=== PATIENT | male | born 1955 | race Caucasian/White ===

== ENCOUNTER 2019-04-06 13:04 | Emergency (ER) | payer OTHER ==
[2019-04-06 13:38] VITALS: BP 146/83; PULSE 85; RESP 18; TEMP 98
[2019-04-06] MEDS ORDERED: KETOROLAC 30 MG/ML 1 ML VIAL IM STA (14:18)
[2019-04-06] MEDS ORDERED: ACET/COD 300 MG/30 MG STARTER PACK 6 TAB BTL PO STA (14:21)
--- NOTE | 2019-04-06 14:23 | ED ---
General Adult HPI - General Chief complaint: Fall Stated complaint: fall, rib pain Time Seen by Provider: 04/06/19 14:03 Source: patient, RN notes reviewed Mode of arrival: ambulatory Limitations: no limitations - History of Present Illness Initial comments: 63-year-old male with a past medical history of hyperlipidemia, hypertension presents to the emergency department for a chief complaint of fall. Patient states that 3 days ago he was walking when he tripped over a wire and fell. States he fell into a the left anterior chest wall. States that the room is fine however he has left sided rib pain in his chest area. States he has not had any abdominal pain. Denies any midline back pain. Denies any other injuries. Denies blood thinner use. States that he has been using a wrap on his ribs which has been helping with the pain. Denies fevers. Denies cough. Patient states that movement makes this pain worse. Patient has no other compla ints at this time including shortness of breath, chest pain, abdominal pain, nausea or vomiting, headache, or visual changes. - Related Data Allergies Allergy/AdvReac Type Severity Reaction Status Date / Time No Known Allergies Allergy Verified 04/06/19 13:34 Review of Systems ROS Statement: Those systems with pertinent positive or pertinent negative responses have been documented in the HPI. ROS Other: All systems not noted in ROS Statement are negative. Past Medical History Past Medical History: Hyperlipidemia, Hypertension History of Any Multi-Drug Resistant Organisms: None Reported Past Surgical History: Appendectomy, Ear Surgery Past Psychological History: No Psychological Hx Reported Smoking Status: Never smoker Past Alcohol Use History: None Reported Past Drug Use History: None Reported General Exam Limitations: no limitations General appearance: alert, in no apparent distress Head exam: Present: atraumatic, normocephalic, normal inspection Eye exam: Present: normal appearance, PERRL, EOMI. Absent: scleral icterus, conjunctival injection, periorbital swelling ENT exam: Present: normal exam, mucous membranes moist Neck exam: Present: normal inspection, full ROM. Absent: tenderness, meningismus, lymphadenopathy Respiratory exam: Present: normal lung sounds bilaterally, chest wall tenderness (L anterior lateral chest wall tenderness). Absent: respiratory distress, wheezes, rales, rhonchi, stridor, other (no contusions or ecchymosis) Cardiovascular Exam: Present: regular rate, normal rhythm, normal heart sounds. Absent: systolic murmur, diastolic murmur, rubs, gallop, clicks GI/Abdominal exam: Present: soft, normal bowel sounds. Absent: distended, tenderness (no tenderness in the abdomen whatsoever), guarding, rebound, rigid, other (no contusions or ecchymosis) Extremities exam: Present: other (moving all extremities without difficulty or pain) Back exam: Absent: vertebral tenderness (no thoracic or lumbar spine tenderness, no contusions present) Neurological exam: Present: alert Course Vital Signs 04/06/19 13:34 Temperature 98 F Pulse Rate 85 Respiratory 18 Rate Blood Pressure 146/83 O2 Sat by Pulse 97 Oximetry Medical Decision Making - Medical Decision Making Vitals are stable. Patient is well appearing, sitting up in armchair on presentation. Lungs are clear bilaterally. Tenderness is noted, left anterior and lateral chest wall around ribs 7. No significant contusion present. No spinal tenderness. No abdominal tenderness whatsoever. States the pain worsens with movement and palpation. Chest x-ray shows a normal chest. X-ray of the left ribs shows no evidence of rib fracture. X-ray was reviewed by myself and Dr. Griggs. Patient was given Toradol which did help with his pain. He was also given a Tylenol 3 starter pack. Patient presented wearing a binder. I discussed that he should not do this as this increases risks for pneumonia. Patient was ordered an incentive spirometer. Discussed taking Motrin for pain. Discussed taking Tylenol 3 for breakthrough pain but not driving or operating machinery while to use. He will follow up with primary care. He will return here if he has any worsening symptoms. Disposition Clinical Impression: Contusion of rib on left side Disposition: HOME SELF-CARE Condition: Good Instructions (If sedation given, give patient instructions): Rib Contusion (ED) Additional Instructions: Please take Motrin for pain. If pain is severe take Tylenol 3. [address] or operate machinery while taking Tylenol 3. Use incentive spirometer 10 times every hour while awake. If you have any worsening symptoms such as increased pain, or symptoms of pneumonia such as fever or cough return to the emergency department. Otherwise follow-up with primary care in the next 1-2 days for recheck. Is patient prescribed a controlled substance at d/c from ED?: No Referrals: Daly Hall MD [Primary Care Provider] - 1-2 days Time of Disposition: 15:06
--- NOTE | 2019-04-06 14:47 | XR ---
EXAMINATION TYPE: XR ribs LT w pa chest xray DATE OF EXAM: 04/06/2019 COMPARISON: NONE HISTORY: Left rib pain TECHNIQUE: 5 views FINDINGS: Heart and mediastinum are normal. Lungs are clear of infiltrate. There is no pleural effusi on or pneumothorax. There is no evidence of rib fracture. IMPRESSION: Normal chest. Normal left ribs.
== END 2019-04-06 15:13 | disposition home or self-care (01) ==
LOC: EC 13:04
DX: S20.212A Contusion of left front wall of thorax, initial encounter (principal); W18.09XA Striking against other object with subsequent fall, initial encounter; W19.XXXA Unspecified fall, initial encounter
CPT/HCPCS: 71101; 99283; 96372; J1885

== ENCOUNTER → 2024-01-18 | Outpatient (CLI) | payer BC ==
--- NOTE | 2024-01-18 11:47 | US ---
EXAMINATION TYPE: US Aorta Screening DATE OF EXAM: 01/18/2024 COMPARISON: NONE CLINICAL INDICATION: Male, 68 years old with history of F17.200 TOBACCO DEPEND; Smoker; Hx HTN TECHNIQUE: Multiple sonographic images of the abdominal aorta are obtained with grayscale and color D oppler imaging. with grayscale and color Doppler imaging FINDINGS: EXAM MEASUREMENTS: Abdominal Aorta: Proximal: 2.0 x 2.0 cm Mid: 1.5 x 1.7 cm Distal: 1.5 x 1.4 cm Bifurcation: Right Iliac: 0.8 x 1.0 cm Left Iliac: 1.1 x 0.7 cm IMPRESSION: No evidence for aortic aneurysm. [facility], , 01/18/2024 11:44 AM
--- NOTE | 2024-01-18 13:30 | CTL ---
EXAMINATION TYPE: CT Low Dose Lung DATE OF EXAM ORDERED: 01/18/2024 HISTORY: Nicotine dependence, 20 pack year history, current smoker. Lung cancer screening CT DLP: 68.[address] CTDI: 1.8 mGy Automated exposure control for dose reduction was used. SCREENING VISIT: First screening visit COMPARISON: None TECHNIQUE: Low dose computed tomography scan was performed through the chest at 1 mm thick sections a nd reconstructed images in multiple planes at 1 mm and [address] DIAGNOSTIC QUALITY: Satisfactory FINDINGS: Nodules: Patchy medial right upper lobe 1.3 cm opacity. LUNGS: COPD: Severity: Mild Fibrosis: Severity: None Lymph nodes: None Other findings: Biapical pleural-parenchymal scarring. RIGHT PLEURAL SPACE: Effusion: None Calcification: None Thickening: None Pneumothorax: None LEFT PLEURAL SPACE: Effusion: None Calcification: None Thickening: None Pneumothorax: None HEART: Heart Size: Normal Coronary Calcification: Small Pericardial Effusion: None OTHER FINDINGS: Upper abdomen: None Bony thorax: Remote fracture of the right shoulder anteriorly with ununited fracture fragment. Supraclavicular region: None Other: Mild atherosclerotic calcification of the aorta and its branches. IMPRESSION: 1. Patchy medial right upper lobe opacity. May represent scarring versus developing pneumonia with u nderlying malignancy not totally excluded. Follow-up CT chest in 3 months is recommended. 2. Mild COPD changes. CT LUNG RAD AND CT CHEST RECOMMENDATION: Lung Rad 0 Incomplete S Modifier (other clinically significant findings): None [facility], , 01/18/2024 1:27 PM
== END | disposition home or self-care (01) ==
LOC: RADUSWWP 06:49
PROVIDERS: ATTEND Family Medicine
CPT/HCPCS: 71271; 76706